=== PATIENT | female | born 2005 | race Caucasian/White ===

== ENCOUNTER 2023-05-02 14:35 | Emergency (ER) | payer OTHER, SELFPAY ==
[2023-05-02 14:48] VITALS: BP 126/80; PULSE 118; RESP 18; TEMP 37.2; O2SAT 100
--- NOTE | 2023-05-02 15:10 | ED.GENADULT ---
HPI - General Adult General Chief complaint: Asthma Stated complaint: Breathing troubles Source: patient, RN notes reviewed and old records reviewed Mode of arrival: ambulatory Limitations: no limitations History of Present Illness HPI narrative: 17-year-old female presents to [facility] with complaints fatigue, general malaise, and poor appetite for 2 weeks. Patient states that about 3-4 days ago started having shortness of breath and pain with inspiration. Patient denies cough, patient states she never coughs when sick. Patient states has a history of asthma but states this feels different. Patient states worried she has pneumonia because several family members recently diagnosed with pneumonia. Patient states has used albuterol inhaler but is down to last dose. MD complaint: sob Onset (ago): day(s) (3) Related Data Allergies Allergy/AdvReac Type Severity Reaction Status Date / Time Penicillins Allergy Unknown RASH Verified 05/02/23 14:49 Review of Systems Constitutional: Constitutional: Reports fatigue, Reports poor appetite and Reports other ( General malaise) Eyes: Eyes: Reports no additional eye complaints ENT: Reports system reviewed and no additional complaints, except as documented Cardiovascular: Cardiovascular: Reports no additional cardiovascular complaints Respiratory: Respiratory: Reports no additional respiratory complaints, Denies chest congestion, Denies cough, Reports pain on inspiration and Reports dyspnea Neurologic: Reports system reviewed and no additional complaints, except as documented PMFSH Comments At the time of my signature, I reviewed and agree with the nursing past medical, surgical, social, and family history. There is no relevant family history pertinent to the patient complaint. Exam Const: General: cooperative, healthy appearing, no acute distress and well nourished Nutritional Appearance: well nourished Orientation/consciousness: patient oriented x3 Limitations: no limitations HENMT: Head: normal to inspection and normocephalic Ears: external ears normal, TM's normal bilaterally, mastoids normal and Abnormal EAC present Face/Nose/Sinus: normal facial exam Face and sinus: normal facial exam Mouth: Yes Normal oral and palatal mucosa present, Yes oropharynx normal and Yes moist mucous membranes Throat: posterior oropharynx normal, tonsils normal, uvula midline and no uvular edema Eyes: General: appearance normal, both eyes and all related structures Sclera: sclerae normal Pupils: Equal, round and reactive pupils present Resp: Effort & Inspection: normal respiratory effort, able to speak in complete sentences, no audible wheezes, no cough, no respiratory distress and no retractions Auscultation: clear to auscultation bilaterally, no crackles, no rales, no rhonchi and no wheezes Cardio: Rate: regular rate Rhythm: regular rhythm Skin: General skin exam: normal color and no rashes or lesions noted Neuro: General: patient oriented x3 Cranial nerves: Yes Equal, round and reactive pupils present Psych: Appearance: grossly normal Course Course Emergency Course: Some parts of this dictation were generated by voice recognition software and may contain typographical and/or grammatical inaccuracies. Level of Care: Express Care Visit Vital Signs Vital signs: Vital Signs Temperature 98.9 F 05/02/23 14:48 Pulse Rate 118 H 05/02/23 14:48 Respiratory Rate 18 05/02/23 14:48 Blood Pressure 126/80 05/02/23 14:48 Pulse Oximetry 100 05/02/23 14:48 Oxygen Delivery Room Air 05/02/23 14:48 Temperature 98.9 F 05/02/23 14:48 Pulse Rate 118 H 05/02/23 14:48 Respiratory Rate 18 05/02/23 14:48 Blood Pressure 126/80 05/02/23 14:48 Pulse Oximetry 100 05/02/23 14:48 Oxygen Delivery Room Air 05/02/23 14:48 Reviewed Medical Decision Making MDM Narrative Medical decision making narrative: patient with malaise, fatigue, shortness of breath.
--- NOTE | 2023-05-02 16:22 | PC.NURSE ---
1530- pt refusing to have a cxr, DIRECTOR EHS in speaking with her at present.
== END 2023-05-02 15:47 | disposition home or self-care (01) ==
PROVIDERS: Emergency Provider Registered Nurse
DX: J45.20 Mild intermittent asthma, uncomplicated (principal)
CPT/HCPCS: 99203; G0463

== ENCOUNTER 2024-03-03 13:26 | Emergency (ER) | payer OTHER, SELFPAY ==
[2024-03-03 13:31] VITALS: BP 139/68; PULSE 114; RESP 16; TEMP 38; O2SAT 100
--- NOTE | 2024-03-03 13:35 | ED.URI ---
HPI - URI/Sore Throat General Chief Complaint: Upper Respiratory Infection Stated Complaint: Sore Throat, Exposure to Strep Time Seen by Provider: 03/03/24 13:37 History of Present Illness HPI Narrative: 18y/o female presented for c/o sore throat, onset yesterday. [place] she had a fever today and took Tylenol about one hour car ferry [employer]. Endorses strep exposure. Denies cough, sob, wheezing, n/v/d/f/c. Related Data Allergies Allergy/AdvReac Type Severity Reaction Status Date / Time Penicillins Allergy Unknown RASH Verified 06/10/23 10:29 food allergies Allergy Mild unknown Uncoded 06/10/23 10:29 Review of Systems Review of Systems: CONSTITUTIONAL: reports fever, chills, or sweats. EYES: Denies visual changes, redness, or discharge. ENT: reports sore throat Denies rhinorrhea, congestion, or otalgia. CARDIOVASCULAR: Denies chest pain, palpitations, or edema. RESPIRATORY: Denies dyspnea. GASTROINTESTINAL: Denies abdominal pain, nausea, vomiting, or diarrhea. SKIN: Denies rash, itching, or wounds. MUSCULOSKELETAL: Denies back pain, joint pain, or myalgia. NEUROLOGIC: Denies headache PMFSH Past Medical History Medical History Broken ankle Broken leg Encounter for feeding tube placement Mitochondrial disease Family History Family History Mother Asthma Depression Sibling Asthma Grandparent Diabetes mellitus Hypertension Heart disease Thyroid disorder Social History Social History Smoking status: Never smoker Alcohol intake: never Substance use: never Do You Feel Safe in your Home?: Yes Lack of Transportation: No Lack of Food: Never True Current Housing: I Have Housing Concerned About Future Housing: No Difficulty Paying Gas/Electric Bills: No Difficulty Paying for Meds: No Currently Unemployed: No Education: High School Diploma/GED Difficulty w/ Childcare or Family Care: No Exam Narrative: GENERAL: well-appearing, no acute distress. EYES: conjunctivae clear ENT: Mucous membranes moist. TMs pearly holland with normal light reflex bilaterally; no tragal tenderness. Oropharynx severely erythematous without lesions. Tonsils enlarged 2+ and without exudate. No drooling, no hoarseness, no trismus, uvula midline. No tripod positioning, hot potato voice, or soft palate swelling. NECK: Supple. bilateral anterior cervical lymphadenopathy CHEST: Clear to auscultation, breath sounds equal. No respiratory distress, speaks in full sentences. HEART: Regular rate and rhythm. No murmur heard. SKIN: Warm, dry, no rash. NEURO: Alert and oriented x3. Course Course Emergency Course: Patient is aware of diagnosis, understands and agrees to treatment plan. Anticipatory guidance given. Patient agrees to follow-up as directed and is aware of reasons to seek care at the emergency department. Portions of this record may have been created with voice recognition software Level of Care: Express Care Visit Vital Signs Vital signs: Vital Signs Temperature 100.4 F H 03/03/24 13:31 Pulse Rate 114 H 03/03/24 13:31 Respiratory Rate 16 03/03/24 13:31 Blood Pressure 139/68 03/03/24 13:31 Pulse Oximetry 100 03/03/24 13:31 Oxygen Delivery Room Air 03/03/24 13:31 Temperature 100.4 F H 03/03/24 13:31 Pulse Rate 114 H 03/03/24 13:31 Respiratory Rate 16 03/03/24 13:31 Blood Pressure 139/68 03/03/24 13:31 Pulse Oximetry 100 03/03/24 13:31 Oxygen Delivery Room Air 03/03/24 13:31 MDM - URI/Sore Throat MDM Narrative Medical decision making narrative: POS strep result reviewed with pt.PCN allergy. Advise supportive treatments and s/s to go to the ER. Patient is appropriate for outpatient treatment and follow-up. Differential Diagnosis Differential diagnosis: Likely upper respiratory infection, viral
[2024-03-03 13:43] LABS: EDSTREPNEGPOS1 Positive (Negative)
== END 2024-03-03 13:52 | disposition home or self-care (01) ==
PROVIDERS: Emergency Provider Nurse Practitioner Family; PCP Clinical Nurse Specialist
DX: J02.0 Streptococcal pharyngitis (principal)
CPT/HCPCS: 87880; 99213; G0463

== ENCOUNTER 2024-05-05 19:02 | Emergency (ER) | payer OTHER, SELFPAY ==
--- NOTE | ~2024-05-05 | XR_ITS ---
EXAM: XR ankle LT min 3V DATE: 05/05/2024 19:38 HISTORY: twistedd 1 hr ago . COMPARISON: None available. FINDINGS: Normal mineralization. No fracture or dislocation. No lytic or blastic lesion. Joint space s are maintained. No erosion or periosteal change. Ankle joint effusion. IMPRESSION: No acute osseous finding in the left ankle. Reviewed, dictated and finalized at location [facility]
[2024-05-05 19:15] VITALS: BP 143/80; PULSE 125; RESP 17; TEMP 37.5; O2SAT 100
--- NOTE | 2024-05-05 19:57 | ED_ITS ---
HPI - Extremity Injury (Lower) General Chief Complaint: Extremity Injury, Lower Stated Complaint: Left Ankle Injury Time Seen by Provider: 05/05/24 19:40 Source: patient and RN notes reviewed Mode of arrival: ambulatory Limitations: no limitations History of Present Illness HPI Narrative: Patient presents today complaining of a left ankle injury. She was running on the edge of an air floor approximately 2 hours prior to arrival, rolled her ankle and felt a pop. She does report some numbness and tingling to the lateral ankle area. She has not been weight-bearing since the injury and has been using crutches. She currently rates her pain 2/10. No [id number] interventions prior to arrival. Related Data Allergies Allergy/AdvReac Type Severity Reaction Status Date / Time Penicillins Allergy Unknown RASH Verified 06/10/23 10:29 food allergies Allergy Mild unknown Uncoded 06/10/23 10:29 Review of Systems Review of Systems: CONSTITUTIONAL: Denies body aches, fever, chills, or sweats. EYES: Denies visual changes, redness, or discharge. ENT: Denies rhinorrhea, congestion, sore throat, or otalgia. CARDIOVASCULAR: Denies chest pain, palpitations, or edema. RESPIRATORY: Denies cough or dyspnea. GASTROINTESTINAL: Denies abdominal pain, nausea, vomiting, or diarrhea. GENITOURINARY: Denies dysuria or hematuria. SKIN: Denies rash, itching, or wounds. MUSCULOSKELETAL: Denies back pain. + left ankle injury NEUROLOGIC: Denies headache, or weakness.+ numbness and tingling PSYCH: Denies depression or anxiety. [facility] Past Medical History Medical History Encounter for feeding tube placement Broken leg Mitochondrial disease Broken ankle Family History Family History Mother Asthma Depression Sibling Asthma Grandparent Diabetes mellitus Hypertension Heart disease Thyroid disorder Social History Social History Smoking status: Never smoker Alcohol intake: never Substance use: never Do You Feel Safe in your Home?: Yes Lack of Transportation: No Lack of Food: Never True Current Housing: I Have Housing Concerned About Future Housing: No Difficulty Paying Gas/Electric Bills: No Difficulty Paying for Meds: No Currently Unemployed: No Education: High School Diploma/GED Difficulty w/ Childcare or Family Care: No Comments At time of signature, I have reviewed and agree with nursing past medical, surgical, social and family history unless otherwise noted. Please see nursing chart for further information. There is no relevant family history pertinent to the presenting complaint Exam Narrative: GENERAL: Well-appearing, well-nourished, and in no acute distress. HEAD: Normocephalic, atraumatic. EYES: EOMI. No redness or drainage. Conjunctivae normal. ENT: Mucous membranes pink and moist. NECK: Normal AROM. CHEST: No respiratory distress. EXTREMITIES: Left ankle: Tenderness and mild localized edema to the lateral malleolus. Distal sensation intact in all 5 toes. Capillary refill normal. Pedal pulse normal. Full range of motion of toes and ankle with some mild increased pain laterally. SKIN: Warm, dry, no rash. Capillary refill normal. Normal skin turgor. NEURO: No focal deficits. Alert and oriented x3. Gait steady. PSYCH: Anxious Course Course Level of Care: Express Care Visit Vital Signs Vital signs: Vital Signs Temperature 99.5 F 05/05/24 19:15 Pulse Rate 125 H 05/05/24 19:15 Respiratory Rate 17 05/05/24 19:15 Blood Pressure 143/80 H 05/05/24 19:15 Pulse Oximetry 100 05/05/24 19:15 Temperature 99.5 F 05/05/24 19:15 Pulse Rate 125 H 05/05/24 19:15 Respiratory Rate 17 05/05/24 19:15 Blood Pressure 143/80 H 05/05/24 19:15 Pulse Oximetry 100 05/05/24 19:15 Reviewed. Patient very anxious, likely cause of her tachycardia MDM - Extremity Injury (Lower) MDM Narrative Medical decision making narrative: X-ray shows no fracture. Prateek wrap applied. Discussed conservative treatment with PCP or orthopedic follow-up if symptoms persist. Anticipatory guidance given. Differential Diagnosis Differential diagnosis: Likely ankle sprain and strain and ankle fracture Imaging Data Radiologist's impression: ITS Impressions Ankle X-Ray 05/05/24 19:45 IMPRESSION: No acute osseous finding in the left ankle. Critical Care Time Critical Care Time Critical Care Time: No Discharge Plan Discharge Clinical Impression: Left ankle sprain Qualifiers: Encounter type: initial encounter Involved ligament of ankle: unspecified ligament Qualified Code(s): S93.402A - Sprain of unspecified ligament of left ankle, initial encounter Patient Disposition: Home, Self-Care Condition: Stable Instructions: Ankle Sprain (DC) Additional Instructions: Your x-ray is negative for fracture. Elevate and ice the ankle. Use the Prateek wrap for comfort and stability. Take Tylenol or ibuprofen for pain. Use the crutches for comfort and advance activity as tolerated. Follow-up with your PCP or orthopedic physician in 7-10 days if symptoms are not improving. Your blood pressure was elevated above 120/80 today at Urgent Care. This puts you above the threshold for follow up. Please schedule a followup visit with your personal physician as soon as possible, for further evaluation and treatment. Even blood pressure exceeding 120/80 may indicate pre-hypertension. Patient Language: Turkish Prescriptions: No Action azithromycin [Zithromax Z-Kyler] 250 mg tablet See Rx Instructions .ROUTE .COMPLEX Qty: 6 0RF Rx Instructions: For 250 mg dose pack: take 500 mg today (day 1), then 250 mg for 4 days (days 2-5) albuterol sulfate 90 mcg/actuation HFA aerosol inhaler 2 puff inhalation Q6H PRN (Reason: shortness of breath or wheezing) Qty: 8.5 0RF Follow-up/Referrals: North Barber MD [Physician] - Love Plascencia FNP-C [Primary Care Provider] - Time of Disposition: 19:52
== END 2024-05-05 20:02 | disposition home or self-care (01) ==
PROVIDERS: Emergency Provider Nurse Practitioner; PCP Clinical Nurse Specialist
DX: S93.402A Sprain of unspecified ligament of left ankle, initial encounter (principal); X50.9XXA Other and unspecified overexertion or strenuous movements or postures, initial encounter; Y93.02 Activity, running
CPT/HCPCS: 73610; 99213; G0463